=== PATIENT | female | born 1960 | race Caucasian/White ===

== ENCOUNTER 2023-08-30 08:00 | Outpatient (RCR) | payer OTHER, SELFPAY | END 2023-12-28 23:59 | disposition home or self-care (01) | PROVIDERS: PCP Surgery; Visit Provider Surgery | DX: M79.672 Pain in left foot (principal); M62.81 Muscle weakness (generalized); Z51.89 Encounter for other specified aftercare | CPT/HCPCS: 97110; 97161 ==

== ENCOUNTER 2023-09-19 10:33 | Outpatient (CLI) | payer OTHER, SELFPAY ==
--- OUTSIDE RECORDS SUMMARY | 2023-09-19 10:36 | XMS_ITS | Clinical Summary ---
Author Name Unknown Organization [facility] Address [place], [place] [address] Care Team Providers Care In Store Marketing Associate Name Role Phone Qamar Yarbrough MD Primary Care Provider [phone] Allergies Active Allergy Reactions Criticality Noted Date Comments Peanut Anaphylaxis High 07/31/2020 Penicillins 11/30/2006 Medications Medication Sig Dispensed Refills Start Date End Date Status cholecalciferol (VITAMIN D3) 2,000 unit capsule 1 PO qd 90 4 04/17/2009 Active cetirizine (ZYRTEC) 10 mg tabletIndications:Env ironmental allergies Take 1 tablet by mouth once daily. 0 12/11/2014 Active calcium citrate-vitamin D3, 250 mg-200 units, (CITRACAL PLUS D) tablet Take by mouth. 2 tablet in AM 0 01/18/2018 Active aspirin (ECOTRIN) 81 mg enteric coated tablet Take 1 tablet by mouth once daily with a meal. 0 01/28/2020 Active sodium chloride (Raffi 128) 5 % ophthalmic solutionIndications:S kin lesion Place 1 Drop into both eyes every 4 hours if needed for Dry Eyes. 15 mL 12/27/2021 Active losartan (COZAAR) 50 mg tabletIndications:Hyp ertension, unspecified type Take 1 Tablet (50 mg) by mouth two times daily. 180 Tablet 3 01/17/2023 Active montelukast (SINGULAIR) 10 mg tabletIndications:Env ironmental allergies,Cough, unspecified type Take 1 Tablet (10 mg) by mouth at bedtime. 90 Tablet 3 01/17/2023 Active omeprazole (PRILOSEC) 20 mg Delayed-Release capsuleIndications:Dy sphagia, unspecified type Take 1 Capsule (20 mg) by mouth once daily before a meal. 90 Capsule 3 01/17/2023 Active rosuvastatin (CRESTOR) 10 mg tabletIndications:Hyp erlipidemia, unspecified hyperlipidemia type Take 1 Tablet (10 mg) by mouth at bedtime. 90 Tablet 3 01/17/2023 Active Raffi 128 5 % ophthalmic ointment Apply 1 Strip to both eyes once daily if needed for Dry Eyes. 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 15 g 2 01/25/2023 Active albuterol HFA (PRO-AIR; VENTOLIN; PROVENTIL) 90 mcg/actuation inhalerIndications:Co ugh Inhale 1-2 Puffs by mouth 4 times daily if needed for Wheezing. 18 Each 1 05/29/2023 Active amLODIPine (NORVASC) 2.5 mg tabletIndications:Hyp ertension, unspecified type Take 1 Tablet (2.5 mg) by mouth once daily. 90 Tablet 3 08/22/2023 Active Active Problems Problem Noted Date Diagnosed Date Environmental allergies 12/11/2014 HTN (hypertension) 06/04/2014 Hot flashes, menopausal 10/02/2013 Adjustment disorder with mixed anxiety and depre ssed mood 07/13/2009 YANIV 05/10 AHI 7 06/01/2009 DDD (degenerative disc disease), lumbar 03/04/20 09 PVC's 03/04/2009 Osteopenia 02/01/2008 Resolved Problems Problem Noted Date Diagnosed Date Resolved Date Muscle weakness of lower extremity 03/04/2009 01/29/2021 Encounters Date Type Department Care Team Description 08/22/2023 10:00 AM CDT Ancillary Procedure [facility] [address] [place] [address] 08/22/2023 9:15 AM CDT Office Visit [facility] [address] [place] [place] [address] Qamar Yarbrough MD Foot Problem (Right foot been started since last September/Started hurting every day around 3 to 4 weeks ago/Ice helps a little bit/Has been doing stretches but that hasn't been helping) 08/22/2023 Travel from Last 3 Months Immunizations Name Administration Dates Next Due COVID-19 Vaccine Spikevax (M oderna 50mcg/0.5mL) 12YO+ [id number] Formula PF 02/21/2023 COVID-19 vaccine (Moderna 100mcg/0.5mL) PF, MDV 08/10/2021,03/15/2021,06/11/2020,2020 COVID-19 vaccine (Moderna 50mcg/0.5mL) 12YO+ BIVALENT PF, MDV 03/21/2022 Influenza A (H1N1), Inactiva juan (Age >=3 Years) 04/14/2009 Influenza, IIV3 (Age 6-35 mos) 01/06/2011 Influenza, IIV3 (Age >=3 years) 01/31/20 13,01/10/2012,01/06/2011,2008 Influenza, IIV4 01/17/2023, 2,01/29/2021,2019,01/21/2019,01/18/2018,01/08/2015 Influenza, IIV4 (=>6mos) MDV 12/29/2016 MMR 08/05/2014 Td (Age >=7 Years) 03/03/1998 Tdap 01/18/2018,01/10/2008 Tuberculin (PPD) 08/04/2014, 2,01/06/2010,2007 Zoster (Shingrix-RZV, recombinant) 12/12/2022, Family History Medical History Relation Name Comments Good Health Brother 1 Other Brother 2 stomach issue Arthritis Father Heart Disease Father 2 stents; aort ic aneurysm, smokes Hypertension Father 81 Other Father COPD Osteoporosis Maternal Aunt Hypertension Mother Osteoporosis Mother also mother's m other Other Mother Parkinson/L4 - L5 spinal fusion, Corneal transplants. Fuches Dystrophy OU Cancer-breast No Family History Cancer-ovarian No Family History Relation Name Status Comments Brother 1 Brother 2 Father Alive Maternal Aunt Mother Social History Tobacco Use Types Packs/Day Years Used Date Smoking Tobacco: Never Smokeless Tobacco: Never Tobacco Cessation:Counseling Given: Yes Alcohol Use Standard Drinks/Week Comments Yes 0 (1 standard drink = 0.6 oz pur e alcohol) 1 drink/day PHQ-2 Answer Date Recorded PHQ-2 TOTAL SCORE 0 01/17/2023 Social Connections Answer Date Recorded Frequency of Communication with Friends and Fami ly 0 05/24/2023 Alcohol Use Answer Date Recorded How often do you have a drink containing alcohol ? 4 01/20/2022 How many drinks containing a lcohol do you have on a typical day when you are drinking? 0 01/20/2022 How often do you have five or more drinks on one occasion? 0 01/20/2022 Financial Resource Strain Answer Date R ecorded Difficulty of Paying Living Expenses 3 05/24/2023 Difficulty of Paying Living Expenses Not on file 05/24/2023 Food Insecurity Answer Date Recorded Worried About Running Out of Food in the Last Ye ar 1 05/24/2023 Transportation Needs Answer Date Record ed Lack of Transportation (Medical) 1 05/24/2023 Housing Stability Answer Date Recorded Unable to Pay for Housing in the Last Year 1 05/24/2023 Sex and Gender Information Value Date Recorded Sex Assigned at Not on file Gender Identity Not on file Sexual Orientation Not on file Obstetrics History Para Term AB IAB SAB Ectopic Multiple Livin g Live Births 2 2 Date Outcome GA Total Labor Labor/2nd/3rd Weight Sex Delivery Anes PTL Nancie A1 A5 Name Cl in Last Filed Vital Signs Vital Sign Reading Time Taken Comments Blood Pressure 145/86 08/22/2023 9:24 AM CDT Pulse 100 08/22/2023 9:24 AM CDT Temperature 36.4 ??C (97.6 ??F) 12/28/2020 1 0:53 AM CDT Respiratory Rate 20 02/06/2018 3:04 PM CDT Oxygen Saturation 100% 08/22/2023 9:22 AM CDT Inhaled Oxygen Concentration - - Weight 86.1 kg (189 lb 12.8 oz) 05/24/2023 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 Height 165.1 cm (5' 5) 01/17/2023 10:0 2 AM CDT Body Mass Index 31.58 01/17/2023 10:02 AM CDT Plan of Treatment Upcoming Encounters Date Type Department Care Team (Late st Contact Info) Description 09/22/2023 11:20 AM CDT Office Visit [facility] [address] [place] [address] Qamar Yarbrough MD [address] [place] [address] 11/14/2023 10:45 AM CDT Telemedicine [facility] [address] [facility] [address] Lorrie Santo, PARENT EDUCATOR [address] [facility] [address] Health Maintenance Due Date Last Done Comments Influenza for age 50-64 12/31/2023 01/18/20, 03/21/2022, 01/29/2021, Additional history exists Mammogram for age 45-75 01/06/2024 01/06/20, 12/31/2021, 01/08/2021, Additional history exists BMI (ht and wt on same day) for age 18+ 01/18/2024 01/17/2023, 01/20/2022, 01/29/2021, Additional history exists Depression screening for age 12+ 01/18/2024 01/17/2023, 01/20/2022, 01/29/2021, Additional history exists Fecal testing sDNA-FIT (Cologuard) for age 45-75 02/22/2025 02/22/2022, 01/28/2019 (Verified in Care Everywhere or Patient Record) Lipids for age 45-75 01/18/2028 01/17/2023, 01/20/2022, 04/19/2021, Additional history exists Tetanus booster 01/19/2028 01/18/2018, 12/30, 03/03/1998 Hepatitis C screening for age 18-79 Completed 12/31/2013 Tdap Completed 01/18/2018, 01/10/2008 Fecal testing non-DNA (FIT,FOBT,iFOBT) for age 45-75 Discontinued 02/01/2019 (Completed outside of [facility]), 01/23/2018, 12/04/2016, Additional history exists Zoster (shingles) series for age 50+ Completed 12/12/2022, 09/19/2022 HIV for age 15-65 Completed 01/17/2023 COVID-19 vaccine series Completed 02/22/20, 03/21/2022, 08/10/2021, Additional history exists Pneumococcal series for age 6-64 Aged Out No longer eligible based on patient's age to complete this topic Procedures Procedure Name Priority Date/Time Associated Diagnosis Comments XR FOOT 3 VIEWS LEFT Routine 08/22/2023 10:00 AM CDT Foot pain, left ANTI HIV 1/2 Routine 01/17/2023 11:04 AM CDT Screening for HIV (human immunodeficiency virus) LIPID PANEL Routine 01/17/2023 11:04 AM CDT Hyperlipidemia, unspecified hyperlipidemia type XR MAMMO DEAN BILAT SCREEN Routine 01/05/2023 9:59 AM CDT Visit for screening mammogram SDNA-FIT EXTERNAL (COLOGUARD) Routine 02/22/2022 7:08 AM CDT Screen for colon cancer OCCULT BLOOD IFOBT STOOL Routine 01/23/2018 8:00 AM CDT Screening for colon cancer ANTI HCV Routine 12/31/2013 9:22 AM CDT Need for hepatitis C screening test from Last 3 Months or Most Recently Relevant to Health Maintenance Results * XR FOOT 3 VIEWS LEFT (08/22/2023 10:00 AM CDT) Anatomical Region Laterality Modality FEET, FOOT L Computed Radiogr aphy 08/22/2023 10:1 4 PM CDT Narrative 08/22/2023 10:14 PM CDT For Patients: ??As a result of the Cures Act, medical imaging exams and procedure reports are released immediately into your electronic medical record. ??You may view this report before your referring provider. ??If you have questions, please contact your health care provider. Indication: Left foot pain. Technique: Left foot 3 views Comparison: 10/08/2019 Findings: No acute fracture. No hallux valgus. Small plantar calcaneal spur with slight pes cavus. Hammertoe deformities may be present. No erosions. Impression: Hammertoe deformities may be present. Small calcaneal spur with pes cavus. Dictated by Silvio Garcia MD @ 08/22/2023 10:14:11 PM (Electronically Signed) Procedure Note Silvio Garcia MD - 08/22/2023 For Patients: As a result of the Cures Act, medical imagingexams and procedure reports are released immediately into your electronicmedical record. You may view this report before your referring provider.If you have questions, please contact your health care provider. Indication: Left foot pain. Technique: Left foot 3 views Comparison: 10/08/2019 Findings: No acute fracture. No hallux valgus. Small plantar calcaneal spur withslight pes cavus. Hammertoe deformities may be present. No erosions. Impression: Hammertoe deformities may be present. Small calcaneal spur with pescavus. Dictated by Silvio Garcia MD @ 08/22/2023 10:14:11 PM (Electronically Signed) Qamar Yarbrough MD GENERAL IMAGING * ANTI HIV 1/2 [00856.0] (01/17/2023 11:04 AM CDT) HIV-1/HIV-2 SCREEN Non-Reacti ve Non-Reacti ve 01/17/2023 8:46 PM CDT [facility] Comment:HIV-1 p24 and HIV-1/ HIV-2 Ab Not Detected. Blood BLOOD SPECIMEN / Unknown Venipuncture / Unknown 01/17/2023 11:04 AM CDT 01/17/2023 11:04 AM CDT Qamar Yarbrough MD SEND OUTS [facility] [address] [place] [address], [place] * (ABNORMAL) LIPID PANEL (01/17/2023 11:04 AM CDT) CHOLESTEROL,TOTAL 224(H) 100 - 199 mg/dL 01/17/2023 9:20 PM CDT [facility] Comment: Cholesterol, Total Reference Ranges Desirable <200 mg/dL Borderline 200-239 mg/dL High >=240 mg/dL TRIGLYCERIDES 100 <150 mg/dL 01/17/2023 9:20 PM CDT [facility] HDL CHOLESTEROL 76 >40 mg/dL 9:20 PM CDT [facility] NON-HDL CHOLESTEROL 148(H) <145 mg/dl 01/17/2023 9:20 PM CDT [facility] CHOL/HDL RATIO 2.95 <4.50 01/17/2023 9:20 PM CDT [facility] LDL CHOLESTEROL 128 <=130 mg/dL 01/17/2023 9:20 PM CDT [facility] VLDL CHOLESTEROL 20 <=30 mg/dL 01/17/2023 9:20 PM CDT [facility] PROVIDER ORDERED STATUS RANDOM 01/17/2023 9:20 PM CDT [facility] Blood BLOOD SPECIMEN / Unknown Venipuncture / Unknown 01/17/2023 11:04 AM CDT 01/17/2023 11:04 AM CDT Qamar Yarbrough MD CHEMISTRY [facility] [address] [place] [address], [place] * XR MAMMO DEAN BILAT SCREEN (01/05/2023 9:59 AM CDT) Anatomical Region Laterality Modality BREASTS, Breast Left, Breast Right Bilateral Mammography Impressions 01/05/2023 2:11 PM CDT ??There is no radiographic evidence for malignancy. ??Recommend annual mammograms. MAMMOGRAM ASSESSMENT: ??ACR 1 Negative PATIENTS: You will also receive a letter with your examination results in an easy to read format. ??If you have questions about your results, please contact your referring provider. Narrative 01/05/2023 2:11 PM CDT For Patients: As a result of the 21st Century Cures Act, medical imaging exams and procedure reports are released immediately into your electronic medical record. You may view this report before your referring provider. If you have questions, please contact your health care provider. XR MAMMO DEAN BILAT SCREEN [[id number]] CLINICAL HISTORY: ??This is an asymptomatic 62 y.o. patient. INDICATION FOR EXAM: Mammogram Screening. TECHNIQUE: CC & MLO views were obtained. ??This study was evaluated with the assistance of Computer-Aided Detection. Breast Tomosynthesis was used in interpretation. COMPARISON FILM: Yes 12/31/21 [facility] 01/08/21 [facility] FINDINGS: ??The breasts are heterogeneously dense, which may obscure small masses. There are no dominant masses, suspicious micro calcifications or areas of architectural distortion. Qamar Yarbrough MD MAMMO * SDNA-FIT EXTERNAL (COLOGUARD) (02/22/2022 7:08 AM CDT) NONINV COLON CA DNA+OCC BLD SCRN STL-IMP Negative Negative 02/27/2022 9:29 AM CDT [facility] (CLIA #:[id number]) Comment: NEGATIVE TEST RESULT. A negative Cologuard result indicates a low likelihood that a colorectal cancer (CRC) or advanced adenoma (adenomatous polyps with more advanced pre-malignant features) ??is present. The chance that a person with a negative Cologuard test has a colorectal cancer is less than 1 in 1500 (negative predictive value >99.9%) or has an ??advanced adenoma is less than ??5.3% (negative predictive value 94.7%). These data are based on a prospective cross-sectional study of 10,000 individuals at average risk for colorectal cancer who were screened with both Cologuard and colonoscopy. (Isabella Ceballos al, N Engl J Med 2014;370(14):1286- 1297) The normal value (reference range) for this assay is negative. COLOGUARD RE-SCREENING RECOMMENDATION: Periodic colorectal cancer screening is an important part of preventive healthcare for asymptomatic individuals at average risk for colorectal cancer. ??Following a negative Cologuard result, the [place] [employer] and U.S. Multi-Society Task Force screening guidelines recommend a Cologuard re-screening interval of 3 years. References: [place] [employer] Guideline for Colorectal Cancer Screening: https://www.cancer.org/cancer/gfwqo-wfdimh-zwnvjh/dleuugprq-ovrqyjhzx-msxaopv/ac s-rec ommendations.html.; Nicholas DK, Alan CR, Amarilis JonesK, Colorectal Cancer Screening: Recommendations for Physicians and Patients from the U.S. Multi-Society Task Force on Colorectal Cancer Screening , Am J Gastroenterology 2017; 112:2815-7959. TEST DESCRIPTION: Composite algorithmic analysis of stool DNA-biomarkers with hemoglobin immunoassay. ?? Quantitative values of individual biomarkers are not reportable and are not associated with individual biomarker result reference ranges. Cologuard is intended for colorectal cancer screening of adults of either sex, 45 years or older, who are at average-risk for colorectal cancer (CRC). Cologuard has been approved for use by the U.S. FDA. The performance of Cologuard was established in a cross sectional study of average-risk adults aged 50-84. Cologuard performance in patients ages 45 to 49 years was estimated by sub-group analysis of near-age groups. Colonoscopies performed for a positive result may find as the most clinically significant lesion: colorectal cancer [4.0%], advanced adenoma (including sessile serrated polyps greater than or equal to 1cm diameter) [20%] or non- advanced adenoma [31%]; or no colorectal neoplasia [45%]. These estimates are derived from a prospective cross-sectional screening study of 10,000 individuals at average risk for colorectal cancer who were screened with both Cologuard and colonoscopy. (Isabella Ceballos al, N Engl J Med 2014;370(14):9750-5501.) Cologuard may produce a false negative or false positive result (no colorectal cancer or precancerous polyp present at colonoscopy follow up). A negative Cologuard test result does not guarantee the absence of CRC or advanced adenoma (pre-cancer). The current Cologuard screening interval is every 3 years. ([place] [employer] and U.S. Multi-Society Task Force). Cologuard performance data in a 10,000 patient pivotal study using colonoscopy as the reference method can be accessed at the following location: www.[employer]am[employer].com/results. Additional description of the Cologuard test process, warnings and precautions can be found at www.cologRaizlabsrd.com. Stool specimen (specimen) (Rectum) 02/22/2022 7:08 AM CDT 02/23/2022 9:56 AM CDT Qamar Yarbrough MD URINE Performing Organization Address [facility] Co de Phone Number [facility] (CLIA #:[id number]) [address] [place] [address], [place] [phone] * OCCULT BLOOD IFOBT STOOL (01/23/2018 8:00 AM CDT) STOOL BLOOD ,IFOBT Negative Negative 01/25/2018 9:01 AM CDT [facility] Stool STOOL SPECIMEN / Unknown Non-Blood / Unknown 01/23/2018 8:00 AM CDT 01/25/2018 8:53 AM CDT Monique Rodríguez NP LABORATOR Y Performing Organization Address [facility] de Phone Number [facility] [address] [place] [address], [place] [phone] * ANTI HCV (12/31/2013 9:22 AM CDT) HEPATITIS C ANTIBODY Non-Reacti ve Non-Reacti ve 12/31/2013 8:19 PM CDT [facility] Blood specimen (specimen) BLOOD SPECIMEN / Unknown Venipuncture / Unknown 12/31/2013 9:22 AM CDT 12/31/2013 9:22 AM CDT Narrative [facility] - 12/31/2013 8:19 PM CDT Antibodies to HCV not detected; does not exclude the possibility of exposure to HCV. Monique Rodríguez NP SEND OUTS [facility] [address] [place] [address], [place] from Last 3 Months or Most Recently Relevant to Health Maintenance Care Teams In Store Marketing Associate Relationship Specialty Start Date End Date Qamar Yarbrough MD [address] [place] [address] PCP - General Family Practice 01/09/20
--- NOTE | 2023-09-19 11:00 | CT_ITS ---
Patient: GARTH MARTINEZ Facility:?[facility] Patient ID:?[id number] Site Patient ID:?[id number]. Site :?[id number] Study:?CT-Knee Left WITHOUT-09/19/2023 11:18:26 AM Ordering Physician:JONATHAN Final Report: INDICATION: Fall. Evaluate for patellar fracture. Evaluate for tibial plateau fracture. History of prior surgery for patellar dislocation. TECHNIQUE: Noncontrast CT of the left knee. COMPARISON: Radiographs from 09/15/2023. FINDINGS: Acute comminuted fracture involves the superior medial aspect of the patella as seen on axial images 53 through 76. There are small comminuted fragments which demonstrate up to approximately 3 millimeters of displacement. Fracture also apparent on coronal images 10 through 13 of series 4. This involves the medial distal quadriceps attachment and MPFL attachment region. This is superimposed on mild chronic deformity of the medial patella. Adjacent soft tissue swelling/hemorrhage is present. There is no acute proximal tibial or distal femoral fracture. There are postsurgical changes of remote tibial tubercle osteotomy which appears healed. Degenerative arthrosis of the knee is present. There is a moderate joint effusion. Small popliteal cyst with internal body. Chondrocalcinosis of the menisci. IMPRESSION: 1. Small acute comminuted fracture of the superomedial patella with small fragments demonstrating up to 3 mm displacement. This is superimposed on mild chronic deformity of the medial patella. 2. No acute proximal tibial fracture. 3. Remote healed tibial tubercle osteotomy. 4. Degenerative changes of the left knee. Moderate knee joint effusion. Chondrocalcinosis. Please note that all CT scans at this facility use dose modulation, iterative reconstruction, and/or weight-based dosing when appropriate to reduce radiation dose to as low as reasonably achievable. Dictated by Que Zurita MD @ 09/19/2023 2:04:51 PM Signed by:?Que Zurita MD @09/19/2023 2:04:51 PM (Electronic Signature)
== END 2023-09-19 10:34 | disposition home or self-care (01) ==
LOC: CT 10:34
PROVIDERS: PCP Surgery; Visit Provider Physician Assistant Surgical
DX: S89.92XA Unspecified injury of left lower leg, initial encounter (principal); M25.462 Effusion, left knee
CPT/HCPCS: 73700

== ENCOUNTER 2023-11-08 10:00 | Outpatient (RCR) | payer OTHER, SELFPAY | END 2023-11-08 10:50 | disposition home or self-care (01) | PROVIDERS: PCP Surgery; Visit Provider Physician Assistant Surgical | DX: S82.025D Nondisplaced longitudinal fracture of left patella, subsequent encounter for closed fracture with routine healing (principal); Z51.89 Encounter for other specified aftercare | CPT/HCPCS: 97110; 97116; 97161 ==